=== PATIENT | female | born 1950 ===

== ENCOUNTER 2024-03-25 06:00 | Day surgery (SDC) | payer OTHER ==
[2024-03-25] MEDS ORDERED: fentaNYL CITRATE 50 MCG/ML AMPUL IV ONE (10:45)
[2024-03-25] MEDS ORDERED: DIPHENHYDRAMINE HCL 50 MG/ML VIAL 1ML IV ONE (10:45)
[2024-03-25] MEDS ORDERED: MIDAZOLAM HCL 2 MG/2 ML VIAL IV ONE ×2 (10:45→11:15)
== END 2024-03-25 12:25 | disposition home or self-care (01) ==
LOC: AMB-ENDOS 06:00
PROVIDERS: ATTEND Surgery
DX: D12.3 Benign neoplasm of transverse colon (principal); K63.5 Polyp of colon; K57.30 Diverticulosis of large intestine without perforation or abscess without bleeding